=== PATIENT | female | born 1995 | race Caucasian/White ===

== ENCOUNTER 2017-10-25 14:38 | Emergency (ER) | payer OTHER ==
--- NOTE | 2017-10-25 14:55 | CPEKG ---
Heart Rate: 73 RR Interval: 822 P-R Interval: 136 QRSD Interval: 76 QT Interval: 380 QTC Interval: 419 P [place]: 62 QRS [place]: 80 T Wave [place]: 51 EKG Severity - ABNORMAL ECG - EKG Impression: SINUS RHYTHM EKG Impression: LEFT ATRIAL ABNORMALITY Electronically Signed By: Terry Jean-Baptiste 25-Oct-2017 21:36:00
[2017-10-25] MEDS ORDERED: IPRATROPIUM/ALBUTEROL 3 ML DEYVIAL ONE (15:19)
--- NOTE | 2017-10-25 15:24 | EDPHY ---
H & P Time Seen by Provider: 10/25/17 15:11 HPI/ROS: CHIEF COMPLAINT: Shortness of breath HISTORY OF PRESENT ILLNESS: The patient is a 22-year-old female presents emergency department with shortness of breath. Patient states she has been driving in the car for the past 3 days. She denies any leg pain or swelling. Over the past 1-2 hours she has had some mild tightness to her chest. This is fairly diffuse. She feels as though it is slightly harder to get air in. She denies any chest pain. No fevers or chills. No nausea or vomiting. No cough. Patient denies smoking. No recent exposure. REVIEW OF SYSTEMS: My complete review of systems is negative except as mentioned in the HPI. Past Medical/Surgical History: Includes Lyme disease. This is resolved. Past surgical history: Appendectomy Social history: Patient does not smoke. She occasionally smokes THC. Smoking Status: Never smoked Physical Exam: Vitals noted GENERAL: Well-appearing, in no acute distress, alert. HEENT: Eyes normal to inspection, normal pharynx, no signs of dehydration. NECK: No thyromegaly, no lymphadenopathy, supple. RESPIRATORY: Clear to auscultation bilaterally, no rales, rhonchi or wheezing. CVS: Regular rate and rhythm, no rubs, murmurs, or gallops. ABDOMEN: Soft, nontender, nondistended, no organomegaly. BACK: Normal to inspection, no CVA tenderness. SKIN: Normal color, no rash, warm, dry. No pallor. EXTREMITIES: No pedal edema, no calf tenderness, no Homans sign or cords, no joint swelling. NEURO/PSYCH: Alert and oriented, normal mood and affect, normal motor sensory exam. Constitutional: Initial Vital Signs Temperature (C) 36.7 C 10/25/17 14:43 Heart Rate 86 10/25/17 14:43 Respiratory Rate 20 10/25/17 14:43 Blood Pressure 104/89 H 10/25/17 14:43 O2 Sat (%) 98 10/25/17 14:43 O2 Delivery Mode Room Air Allergies/Adverse Reactions: nitrofurantoin Allergy (Verified 10/25/17 14:43) Home Medications: Medication Instructions Recorded NK [No Known Home Meds] 10/25/17 Medical Decision Making - Diagnostics Imaging Results: Imaging Impressions Chest X-Ray 10/25/17 15:25 Impression: Normal. No explanation for pain. ED Course/Re-evaluation: In the emergency department I discussed possible etiologies with the patient. An EKG was obtained. EKG shows normal sinus rhythm, normal rate, normal axis, normal intervals. There are no ST or T-wave abnormalities. EKG is normal as interpreted by me. Due the patient's symptoms she was given a DuoNeb. It was noted that she had normal oxygen saturation and clear breath sounds but she was complaining of chest tightness. Laboratory studies and chest x-ray were ordered. Patient's CBC chemistry unremarkable. Troponin was negative. D-dimer was 0.33. Chest x-ray: No acute disease Discussed the results with the patient. I answered all her questions. She was given warnings prior to leaving. She will return with worsening symptoms. Differential Diagnosis: My differential includes but is not limited to pulmonary embolus, bronchitis, pneumonia, reactive airway disease, ACS, acute LA, pneumothorax - Data Points Laboratory Results: Laboratory Results 10/25/17 15:55 10/25/17 15:55 10/25/17 10/25/17 10/25/17 15:56 15:55 15:55 WBC RBC Hgb Hct MCV MCH MCHC RDW Plt Count MPV Neut % (Auto) Lymph % (Auto) Dickinson % (Auto) Eos % (Auto) Baso % (Auto) Nucleat RBC Rel Count Absolute Neuts (auto) Absolute Lymphs (auto) Absolute Monos (auto) Absolute Eos (auto) Absolute Basos (auto) Absolute Nucleated RBC Immature Gran % Immature Gran # D-Dimer Sodium 141 mEq/L mEq/L (135-145) Potassium 3.9 mEq/L mEq/L (3.3-5.0) Chloride 105 mEq/L mEq/L (97-110) Carbon Dioxide 27 mEq/l mEq/l (22-31) Anion Gap 9 mEq/L mEq/L (8-16) BUN 13 mg/dL mg/dL (7-23) Creatinine 0.7 mg/dL mg/dL (0.6-1.0) Estimated GFR > 60 Glucose 85 mg/dL mg/dL (70-100) Calcium 9.6 mg/dL mg/dL (8.5-10.4) POC Troponin I 0.00 ng/mL ng/mL (0.00-0.08) Beta HCG, Qual NEGATIVE 10/25/17 10/25/17 15:55 15:55 WBC 4.08 10^3/uL 10^3/uL (3.80-9.50) RBC 5.52 10^6/uL H 10^6/uL (4.18-5.33) Hgb 16.8 g/dL H g/dL (12.6-16.3) Hct 49.3 % H % (38.0-47.0) MCV 89.3 fL fL (81.5-99.8) MCH 30.4 pg pg (27.9-34.1) MCHC 34.1 g/dL g/dL (32.4-36.7) RDW 12.3 % % (11.5-15.2) Plt Count 125 10^3/uL L 10^3/uL (150-400) MPV 11.2 fL fL (8.7-11.7) Neut % (Auto) 57.6 % % (39.3-74.2) Lymph % (Auto) 31.1 % % (15.0-45.0) Dickinson % (Auto) 6.9 % % (4.5-13.0) Eos % (Auto) 3.7 % % (0.6-7.6) Baso % (Auto) 0.5 % % (0.3-1.7) Nucleat RBC Rel Count 0.0 % % (0.0-0.2) Absolute Neuts (auto) 2.35 10^3/uL 10^3/uL (1.70-6.50) Absolute Lymphs (auto) 1.27 10^3/uL 10^3/uL (1.00-3.00) Absolute Monos (auto) 0.28 10^3/uL L 10^3/uL (0.30-0.80) Absolute Eos (auto) 0.15 10^3/uL 10^3/uL (0.03-0.40) Absolute Basos (auto) 0.02 10^3/uL 10^3/uL (0.02-0.10) Absolute Nucleated RBC 0.00 10^3/uL 10^3/uL (0-0.01) Immature Gran % 0.2 % % (0.0-1.1) Immature Gran # 0.01 10^3/uL 10^3/uL (0.00-0.10) D-Dimer 0.33 ug/mLFEU ug/mLFEU (0.00-0.50) Sodium Potassium Chloride Carbon Dioxide Anion Gap BUN Creatinine Estimated GFR Glucose Calcium POC Troponin I Beta HCG, Qual Medications Given: Discontinued Medications Albuterol/Ipratropium (Duoneb) 3 ml IH EDNOW ONE Stop: 10/25/17 15:34 Last Admin: 10/25/17 15:34 Dose: 3 ml Point of Care Test Results: Chemistry 10/25/17 15:56 POC Troponin I 0.00 ng/mL ng/mL (0.00-0.08) Departure - Departure Disposition: Home, Routine, Self-Care Clinical Impression: Shortness of breath Condition: Good Instructions: Shortness of Breath (ED) Additional Instructions: Return with increasing shortness of breath, chest pain, fever, persistent cough or any other concerns. Referrals: Adriana Nichols DO [Doctor of Osteopathy] - 5-7 days, call for appt.
[2017-10-25] MEDS ORDERED: IPRATROPIUM/ALBUTEROL 3 ML DEYVIAL IH ONE (15:33)
[2017-10-25 16:47] LABS: PLATELET COUNT 125 10^3/uL (150-400)
[2017-10-25 17:13] VITALS: BP 122/65
== END 2017-10-25 17:13 | disposition home or self-care (01) ==
DX: R06.02 Shortness of breath (principal)
CPT/HCPCS: 84484-PO